=== PATIENT | male | born 1955 | race Caucasian/White ===

== ENCOUNTER 2025-07-10 08:11 | Outpatient (CLI) | payer MEDICARE ==
[2025-07-10 09:16] LABS: Estimated GFR - POC 73.0
== END 2025-07-10 08:12 | disposition home or self-care (01) ==
LOC: SCSMRI 08:11
PROVIDERS: ATTEND Urology
DX: R97.20 Elevated prostate specific antigen [PSA] (principal)
CPT/HCPCS: 36415; 72197; 82565